=== PATIENT | female | born 1965 | race Caucasian/White ===

== ENCOUNTER 2018-12-07 18:26 | Emergency (ER) | payer OTHER ==
[2018-12-07] MEDS: KETOROLAC 15 MG INJ IM (22:29)
== END 2018-12-08 00:17 | disposition home or self-care (01) ==
LOC: FTE 12-08 00:17
DX: M25.512 Pain in left shoulder (principal); E11.9 Type 2 diabetes mellitus without complications
CPT/HCPCS: 73030; 96372; 99284-25